=== PATIENT | male | born 1980 | race Hispanic/Latino ===

== ENCOUNTER 2019-05-22 17:32 | Inpatient (IN) ==
[2019-05-22] MEDS ORDERED: Sodium Chloride 0.9% 1,000 ML PRIMARY IV ONE ×2 (17:54)
[2019-05-22 17:59] LABS: BASOPHILS % (AUTO) 1.3 % (0-1); EOSINOPHILS # (AUTO) 0.02 10*3/UL; EOSINOPHILS % (AUTO) 0.3 % (0-8); Hematocrit [HCT] 46.5 % (42.0-52.0); Hemoglobin [HGB] 15.9 g/dL (14.0-18.0); LYMPHOCYTES # (AUTO) 1.72 10*3/uL; MEAN CORPUSCULAR HEMOGLOBIN 33.1 PG (27-31); MEAN CORPUSCULAR HGB CONC 34.2 g/dL (33-37); MEAN CORPUSCULAR VOLUME 96.9 FL (80-90); MEAN PLATELET VOLUME 10.1 FL (7.4-12.2); MONOCYTES # (AUTO) 0.93 10*3/UL (0.3-0.8); MONOCYTES % (AUTO) 12.5 % (5-15); NEUTROPHILS # (AUTO) 4.64 10*3/UL; NEUTROPHILS % (AUTO) 62.4 % (50-80)
[2019-05-22 18:07] LABS: PLATELET MORPHOLOGY COMMENT NORMAL MORPHOLOGY (NORM); RBC MORPHOLOGY COMMENT NORMAL MORPHOLOGY (NORM); WBC MORPHOLOGY COMMENT NORMAL MORPHOLOGY (NORM)
[2019-05-22 18:10] LABS: BLOOD UREA NITROGEN 5 mg/dL (7-22); BUN/CREATININE RATIO 6.25 (6-20); SERUM ALBUMIN 5.5 g/dL (3.5-4.8)
[2019-05-22] MEDS ORDERED: LORazepam 2 MG/1 ML VIAL IVP ONE (18:46)
--- NOTE | 2019-05-22 18:57 | PDOC ---
Altered Mental Status HPI - General Chief Complaint: Altered Mental Status Stated Complaint: SEIZURE Date Seen by Provider: 05/22/19 Time Seen by Provider: 18:20 - History of Present Illness Initial Comments: This is a very nice 38-year-old gentleman who moved here from [place] and is working on the [employer]. He states that he is a daily drinker and that he drank a little bit yesterday but has not drank anything today and has been working out in the hot sun. He ended up having a episode where he became altered mentally and had some shaking is unclear whether had seizure or not but he did not have loss of bowel or bladder continence. He is definitely tremulous and tachycardic here in the emergency department now. He denies fever or chills or abdominal pain or nausea or vomiting. Past Medical History - heen HEENT History: Denies History Cardiovascular History: Denies History Respiratory History: Denies History Gastrointestinal History: Denies History Genitourinary History: Denies History Endocrine History: Denies History Musculoskeletal History: Denies History Prosthesis or Implant: No Neurological History: Denies History Blood Disorders: Denies History Psychiatric History: Denies History Male Reproductive History: Denies History Cancer History: Denies History In Past Year Been Physically Harmed or Verbally Threatened: No History of MDRO: Unknown Tobacco Use: Never Smoker In the Past 12 Months, Have Used or Abuse Any Substance: None Previous Surgical History: No Family History of Malignant Hyperthermia: No Significant Family History: No pertinent family hx Past Medical History Reviewed: Reviewed - No Changes ROS - Limitations ROS Limitations: No Limitations Constitution: REPORTS: Denies Symptoms Cardiovascular: REPORTS: Denies Cardiac Symptoms Respiratory: REPORTS: Denies Resp Symptoms Gastrointestinal: REPORTS: Denies GI Symptoms Musculoskeletal: REPORTS: Denies MS Symptoms Altered Mental Physical Exam - General Appearance General Appearance: POSITIVE: Alert, Cooperative, No Acute Distress - HEENT HEENT: POSITIVE: Head Inspection Nml - Neuro/Psych Peripheral Exam: POSITIVE: Tremors - Neck Neck: POSITIVE: Supple, Non Tender - Respiratory Respiratory: POSITIVE: No Respiratory Distress, Breath Sounds Normal - Abdomen Abdomen: Soft: (All Quadrants), Normal Bowel Sounds: (All Quadrants), Denies Tenderness: (All Quadrants) - Skin Skin: POSITIVE: Normal for Race Altered Mental Status - Results Reviewed By Me Lab Results Reviewed by Me: Yes CBC and BMP: 05/22/19 17:50 05/22/19 17:50 Lab Results:: Laboratory Results 05/22/19 05/22/19 05/22/19 17:50 17:50 17:50 WBC 7.44 RBC 4.80 Hgb 15.9 Hct 46.5 MCV 96.9 H MCH 33.1 H MCHC 34.2 RDW Std Deviation 49.0 RDW Coeff of Braeden 14.0 Plt Count 119 L MPV 10.1 Immature Gran % (Auto) 0.4 Neut % (Auto) 62.4 Lymph % (Auto) 23.1 Wilson % (Auto) 12.5 Eos % (Auto) 0.3 Baso % (Auto) 1.3 H Immature Gran # (Auto) 0.03 Neut # (Auto) 4.64 Lymph # (Auto) 1.72 Wilson # (Auto) 0.93 H Eos # (Auto) 0.02 Baso # (Auto) 0.10 WBC Morphology Comment Normal morphology Plt Morphology Comment Normal morphology RBC Morph Comment Normal morphology Sodium 141 Potassium 3.7 L Chloride 102 Carbon Dioxide 13 L Anion Gap 26 H BUN 5 L Creatinine 0.8 Estimated GFR > 60 BUN/Creatinine Ratio 6.25 Glucose 166 H Calculated Osmolality 292.0 Calcium 10.1 Magnesium 1.6 Total Bilirubin 1.0 AST 221 H ALT 219 H Alkaline Phosphatase 105 Total Creatine Kinase 320 H Total Protein 9.4 H Albumin 5.5 H Globulin 3.9 Albumin/Globulin Ratio 1.40 Serum Alcohol < 10 - Patient's Progress MDM / ED Course: There is a significant language barrier but I think we have been able to bridge that with the help of gout will translate and one of our paramedics. Ultimately we have been able to figure out that this gentleman is a chronic daily drinker and hasn't drank very much the last 2 days and has been working hard in the sun and is having some alcohol withdrawal symptoms. He's healthy otherwise and does desire to stop drinking and would like to complete alcohol withdrawal. The case is been discussed with the hospitalist who is agreed to accept the patient into the hospital. He's been given a 2 mg dose of Ativan and no further thiamine or other vitamins or treatment have been given in the ER at this time. Patient Care Time - Estimated PCT Patient Care Time (In Minutes): 40 Vital Signs - Recent Vital Signs Vital Signs: Vital Signs (Last 8 hours) Temp Pulse Resp BP Pulse Ox 05/22/19 18:10 97.1 F 124 H 16 160/96 93 Discharge Clinical Impression: Alcohol withdrawal Qualifiers: Complication of substance-induced condition: uncomplicated Qualified Code(s): F10.230 - Alcohol dependence with withdrawal, uncomplicated Discharge Disposition: Admit to Inpatient Condition: Fair Patient Problem(s) Reviewed: Yes Follow Up With: NONE,NONE [Primary Care Provider] - Date Decision to Admit to Inpatient: 05/22/19 Time Decision to Admit to Inpatient: 19:27
[2019-05-22] MEDS ORDERED: Diazepam Inj (ETOH withdrawal)10 MG/2 ML CARPUJECT IVP PRN (20:00)
[2019-05-22] MEDS ORDERED: Dexmedetomidine/NS 400 MCG/100 ML INFUS..BTL IV SCH (20:15)
[2019-05-22] MEDS ORDERED: Loperamide Tab 2 MG TABLET PO PRN (23:00)
[2019-05-22] MEDS ORDERED: Sodium Chloride 0.9% 1,000 ML, Magnesium Sulfate 2gm (Premix) 50 ML with Multivitamin I... IV SCH ×5 (23:00)
[2019-05-22] MEDS ORDERED: LIDOCAINE W/ SODIUM BICARB 0.5 ML SYR SUBD PRN (23:00)
[2019-05-22] MEDS ORDERED: Diazepam 10 mg Tab (ETOH withdrawal) PO PRN (23:00)
[2019-05-22] MEDS ORDERED: MAGNESIUM 400 MG/5 ML - 30 ML (MILK OF MAGNESIA) PO PRN (23:00)
[2019-05-22] MEDS ORDERED: MAG HYDROX/AL HYDROX/SIMETH 30 ML SUSP PO PRN (23:00)
[2019-05-22] MEDS ORDERED: ONDANSETRON 4 MG/2 ML VIAL IV PRN (23:00)
[2019-05-22] MEDS ORDERED: Magnesium Sulfate 2gm (Premix) 2 GM/50 ML BAG IV ONE (23:10)
--- NOTE | 2019-05-22 23:10 | PDOC ---
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 He comes in stating that he was "feeling sick". He does not have any recall of the events surrounding today's episode when he felt sick. In the emergency room he was found to have tremors, and was mildly agitated. He admitted to drinking 6 beers to the emergency room physician. But he admitted to me that he drank about a case of beer per day. He stopped drinking alcohol 3 days ago. He denied any abdominal pain or headache but states that normally when he gets sick he has headaches. He does not recall any seizure activity. He did not bite his tongue. He did lose his bowel or bladder function. He has no specific complaints today and I did a thorough review of history with [place] and he stated that he understood the questions very well. He responded very well to Ativan, and is feeling much better. It is not known if he had any prior problems with alcohol. When I asked him why he decided to stop alcohol, he states that he just felt that it was time to stop. Past Medical History Medical History: No prior medical problems. Surgical History: The patient denied any prior history of surgeries. Pertinent Family History: He denies any family history of medical issues such as diabetes or coronary artery disease. Past Social History: Illegal from [place]. He does not smoke cigarettes. He drinks about 12 beers per day. Not . States he has children. Tobacco Use: Never Smoker In the Past 12 Months, Have Used or Abuse Any of the Following Substance: None (The patient denied any drug use) Alcohol Use: Heavy Medication / Allergies Home Medications: Home Medications Medication Instructions Recorded Confirmed NK 05/22/19 05/22/19 Allergies/Adverse Reactions: Allergies Allergy/AdvReac Type Severity Reaction Status Date / Time No Known Allergies Allergy Verified 05/22/19 20:17 Review of Systems - Review of Systems All Systems: Reviewed & No Additional Complaints Except as Stated (I did a 12 point review systems and it was negative other than that discussed below and in the history of present illness. Specifically I used the Google translate at and the patient understood well.) Exam - Vitals Vital Signs: Vital Signs Temperature 97 F Temperature Source Temporal Artery Scan Pulse Rate [Pulse Oximeter 93 Bilateral] Pulse Rate 80 Respiratory Rate 19 Blood Pressure [Left Arm] 160/96 Blood Pressure 118/81 Pulse Ox 95 Oxygen Flow Rate room air Oxygen Delivery Method Room Air Height 5 ft 5 in Weight 140 lb - General General Appearance: No Acute Distress, Cooperative, Average Body Hiatus - Head Head Exam: Normal Inspection, Normocephalic, Atraumatic - Eye Eye Exam: POSITIVE: No Scleral Icterus - ENT ENT Exam: POSITIVE: Mucous Membranes Moist Additonal ENT Exam Details: No evidence of tongue lacerations on my exam. - Neck Neck Exam: Normal Inspection, No Lymphadenopathy, No Thyromegaly, JVP is not Raised - Respiratory Respiratory Exam: POSITIVE: Clear to Auscultation - Bilaterally, Breathing Non Labored, Normal to Percussion and Palpation - Cardiovascular Cardiovascular Exam: POSITIVE: No Murmur, No Clicks, No Gallops, No Rubs, Tachycardia, No JVD - GI/Abdominal GI/Abdominal Exam: POSITIVE: Normal Bowel Sounds, Non Tender, Non Distended, Soft - Rectal Rectal Exam: POSITIVE: Deferred - External Exam: POSITIVE: Deferred Exam: POSITIVE: Deferred - Extremities Extremities Exam: POSITIVE: No Clubbing Present, No Edema Present, No Cyanosis Present - Back Back Exam: POSITIVE: No CVA Tenderness - Neurological Neurological Exam: POSITIVE: Alert, Oriented x 3, No Facial Droop, Speech Intact / Clear, Moves All Extremities Equally - Integumentary Integumentary Exam: POSITIVE: Normal Color, Warm, Dry, Intact Results - Labs CBC and BMP: 05/22/19 17:50 05/22/19 17:50 Additional Lab Results: Laboratory Results 05/22/19 05/22/19 05/22/19 17:50 17:50 17:50 WBC 7.44 RBC 4.80 Hgb 15.9 Hct 46.5 MCV 96.9 H MCH 33.1 H MCHC 34.2 RDW Std Deviation 49.0 RDW Coeff of Braeden 14.0 Plt Count 119 L MPV 10.1 Immature Gran % (Auto) 0.4 Neut % (Auto) 62.4 Lymph % (Auto) 23.1 Ransom % (Auto) 12.5 Eos % (Auto) 0.3 Baso % (Auto) 1.3 H Immature Gran # (Auto) 0.03 Neut # (Auto) 4.64 Lymph # (Auto) 1.72 Ransom # (Auto) 0.93 H Eos # (Auto) 0.02 Baso # (Auto) 0.10 WBC Morphology Comment Normal morphology Plt Morphology Comment Normal morphology RBC Morph Comment Normal morphology Sodium 141 Potassium 3.7 L Chloride 102 Carbon Dioxide 13 L Anion Gap 26 H BUN 5 L Creatinine 0.8 Estimated GFR > 60 BUN/Creatinine Ratio 6.25 Glucose 166 H Calculated Osmolality 292.0 Calcium 10.1 Magnesium 1.6 Total Bilirubin 1.0 AST 221 H ALT 219 H Alkaline Phosphatase 105 Total Creatine Kinase 320 H Total Protein 9.4 H Albumin 5.5 H Globulin 3.9 Albumin/Globulin Ratio 1.40 Serum Alcohol < 10 Assessment and Plan - Patient Problems (1) Chronic alcoholism Current Visit: Yes Status: Acute Code(s): F10.20 - Alcohol dependence, uncomplicated (2) Alcohol withdrawal Current Visit: Yes Status: Acute Code(s): F10.239 - Alcohol dependence with withdrawal, unspecified Qualifiers: Complication of substance-induced condition: uncomplicated Qualified Code(s): F10.230 - Alcohol dependence with withdrawal, uncomplicated - Assessment / Plan Additional Assessment/Plan Details: Admit the patient. We'll start Precedex drip immediately. This is a young man who is drinking much more heavily than what he admits. In addition we will start the CIWA protocol. I will scheduled Librium for now. Seizure precautions. Monitor in the ICU. Electrolyte replacement with magnesium and potassium, banana bags for electrolyte and vitamin replacement, including thiamine, and normal saline with potassium in between banana bags. Check labs in a.m. Hopefully, the patient will remain off of alcohol after he recovers from his alcohol detox. Given his legal status in the [place] to be very difficult to place him in services for alcohol cessation post hospital stay. Urine drug screen
[2019-05-22] MEDS: ChlordiazePOXIDE Cap 25 MG CAPSULE PO SCH (23:49)
--- NOTE | 2019-05-23 00:37 | EKG ---
[address] [address] Measurements Intervals [place] Rate: 86 P: 61 SD: 137 QRS: 51 QRSD: 90 T: 61 QT: 391 QTc: 435 Interpretive Statements SINUS RHYTHM No previous ECG available for comparison Electronically Signed On 05-23-19 08:13:28 MDT by Tanner Joseph [email or web address]
--- NOTE | 2019-05-23 00:57 | EKG ---
[address] [address] Measurements Intervals [place] Rate: 124 P: 70 WA: 159 QRS: 46 QRSD: 97 T: 49 QT: 312 QTc: 385 Interpretive Statements SINUS TACHYCARDIA NONSPECIFIC ST CHANGES No previous ECG available for comparison Electronically Signed On 05-23-19 08:12:43 MDT by Tanner Joseph [email or web address]
[2019-05-23 01:52] LABS: AMPHETAMINE SCREEN NEGATIVE (NEG); CANNABINOID SCREEN,URINE NEGATIVE (NEG); COCAINE SCREEN NEGATIVE (NEG); METHADONE URINE SCREEN NEGATIVE (NEG); METHAMPHETAMINES SCREEN,URINE NEGATIVE (NEG); OPIATE SCREEN,URINE NEGATIVE (NEG); URINE SAMPLE TYPE CLEAN CATCH URINE
[2019-05-23 04:53] LABS: BASOPHILS # (AUTO) 0.04 10*3/UL; BASOPHILS % (AUTO) 0.6 % (0-1); EOSINOPHILS # (AUTO) 0.03 10*3/UL; EOSINOPHILS % (AUTO) 0.5 % (0-8); Hematocrit [HCT] 44.2 % (42.0-52.0); Hemoglobin [HGB] 15.2 g/dL (14.0-18.0); LYMPHOCYTES # (AUTO) 0.82 10*3/uL; MEAN CORPUSCULAR HGB CONC 34.4 g/dL (33-37); MEAN CORPUSCULAR VOLUME 96.1 FL (80-90); MEAN PLATELET VOLUME 11.1 FL (7.4-12.2); MONOCYTES # (AUTO) 0.85 10*3/UL (0.3-0.8); MONOCYTES % (AUTO) 13.3 % (5-15); NEUTROPHILS # (AUTO) 4.65 10*3/UL; NEUTROPHILS % (AUTO) 72.6 % (50-80)
[2019-05-23 04:57] LABS: BLOOD UREA NITROGEN 5 mg/dL (7-22); BUN/CREATININE RATIO 8.33 (6-20); SERUM ALBUMIN 4.5 g/dL (3.5-4.8)
[2019-05-23 05:13] LABS: PLATELET MORPHOLOGY COMMENT NORMAL MORPHOLOGY (NORM); RBC MORPHOLOGY COMMENT NORMAL MORPHOLOGY (NORM); WBC MORPHOLOGY COMMENT NORMAL MORPHOLOGY (NORM)
[2019-05-23] MEDS: ChlordiazePOXIDE Cap 25 MG CAPSULE PO SCH ×3 (08:02→20:18)
[2019-05-23] MEDS ORDERED: PANTOPRAZOLE IV 40 MG VIAL IVP SCH (09:00)
--- NOTE | 2019-05-23 09:48 | PDOC(PROG) ---
Interval History: Patient has no complaints this morning. He has no tremors his Precedex drip is almost off. Does not seem agitated. Objective : Data - Labs CBC and BMP: 05/23/19 03:47 05/23/19 03:47 Objective : Exam - General General Appearance: No Acute Distress, Cooperative - Respiratory Respiratory Exam: Clear to Auscultation - Bilaterally, Breathing Non Labored, Normal To Percussion, Normal to Percussion and Palpation - Cardiovascular Cardiovascular Exam: RRR, No Murmur, No Clicks, No Gallops, No Rubs, PMI Non- Displaced - GI/Abdominal GI/Abdominal Exam: Normal Bowel Sounds, Non Tender, Non Distended, Soft, No Masses, No Hepatomegaly, No Splenomegaly, No Organomegaly - Extremities Extremities Exam: No Clubbing Present, No Edema Present, No Cyanosis Present Assessment and Plan - Patient Problems (1) Alcohol withdrawal Current Visit: Yes Status: Acute Comment: We will stop the Precedex drip observed patient if he scores only see well his vitamins and electrolytes were replaced he is well rehydrated. Discussed with nursing Code(s): F10.239 - Alcohol dependence with withdrawal, unspecified Qualifiers: Complication of substance-induced condition: uncomplicated Qualified Code(s): F10.230 - Alcohol dependence with withdrawal, uncomplicated (2) Chronic alcoholism Current Visit: Yes Status: Acute Code(s): F10.20 - Alcohol dependence, uncomplicated
[2019-05-23] MEDS ORDERED: LORazepam Inj(ETOH withdrawal) 2 MG/ML VIAL IVP PRN (14:58)
[2019-05-23] MEDS ORDERED: LORazepam 1 mg tab (ETOH withdrawal) PO PRN (14:58)
[2019-05-24 07:35] VITALS: BP 115/88
[2019-05-24] MEDS ORDERED: Multivitamin Tab 1 TAB PO SCH (09:00)
[2019-05-24] MEDS ORDERED: FOLIC ACID 1 MG TABLET PO SCH (09:00)
[2019-05-24] MEDS ORDERED: Thiamine Tab 100 MG TAB PO SCH (09:00)
[2019-05-24 09:12] VITALS: RESP 18; O2SAT 95
[2019-05-24] MEDS: ChlordiazePOXIDE Cap 25 MG CAPSULE PO SCH (09:36)
[2019-05-24 09:59] VITALS: TEMP 98.4
--- NOTE | 2019-05-24 10:14 | DCSUMMARY ---
Hospitalization Summary Hospital Course: Final Discharge Diagnosis: Current Visit Problems Problem Status Onset Code Alcohol withdrawal Acute F10.239 Chronic alcoholism Acute F10.20 Dehydration Diagnostic Data, Laboratory Data, and Procedures of Signifigance: Current Visit Problems Problem Status Onset Code Alcohol withdrawal Acute F10.239 Chronic alcoholism Acute F10.20 Laboratory Results 05/23/19 03:47 Vitamin B12 789 Serum Folate > 20.0 H CBC and BMP 05/23/19 03:47 05/23/19 03:47 History and Physical pertinent to Admission: Course of Hospitalization: Is a very nice 38-year-old the gentleman from [place] he was doing some work here was seen in the ER met the criteria for alcohol withdrawal was admitted. Initially he was put on Precedex drip this was stopped to the patient was eating food doing well yesterday morning he had some mild tremors and tachycardia and was given Ativan throughout the rest of the day and during the night patient did not score to receive any more medication this morning he is doing great he is out of bed he pulled his on IV and 3 of his friends are here and the they are leaving the hospital to go home he will be walking out no matter what I recommend. I recommended he stay at least for lunch and see how he would feel but he said he was leaving at this point and was not stay for lunch. 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 He understands he was appreciative of the help he received here. He is on no medication he said he will not be drinking anymore. On the date of discharge, the patient was examined: Gen.: [No acute distress, alert, nontoxic] Heart: [Regular rate and rhythm, no murmurs, clicks, gallops, or rubs] Lungs: [Clear to auscultation bilaterally, breathing is nonlabored] Abdomen/GI: [Normal tones on auscultation, soft, nontender, nondistended] Musculoskeletal/extremities: [No clubbing, cyanosis, or edema] Vitals reviewed and are listed below Vital Signs (24 hrs) 05/23/19 11:00 05/23/19 11:24 05/23/19 12:00 Temperature 98.6 F 96.9 F 98.2 F Pulse Rate 69 Pulse Rate [Pulse Oximeter Bilateral] 67 92 Pulse Rate [left finger] 74 Respiratory Rate 16 16 14 Blood Pressure 127/81 Blood Pressure [Left Arm] 127/81 140/86 Pulse Ox 97 96 Pulse Ox [left finger] 97 05/23/19 13:00 05/23/19 14:00 05/23/19 14:04 Temperature 98.2 F 98.2 F Pulse Rate 89 Pulse Rate [Pulse Oximeter Bilateral] 88 97 Pulse Rate [left finger] 95 Respiratory Rate 14 19 18 Blood Pressure 157/105 Blood Pressure [Left Arm] 141/88 157/103 Pulse Ox 95 94 Pulse Ox [left finger] 96 05/23/19 15:00 05/23/19 15:38 05/23/19 16:00 Temperature 98.2 F Pulse Rate 80 86 Pulse Rate [Pulse Oximeter Bilateral] 97 89 Pulse Rate [left finger] 95 Respiratory Rate 19 14 Blood Pressure 134/92 Blood Pressure [Left Arm] 141/111 134/92 Pulse Ox 92 95 Pulse Ox [left finger] 92 05/23/19 17:00 05/23/19 17:21 05/23/19 18:00 Temperature 97.7 F Pulse Rate Pulse Rate [Pulse Oximeter Bilateral] 90 90 95 Pulse Rate [left finger] 90 Respiratory Rate 16 16 15 Blood Pressure Blood Pressure [Left Arm] 131/90 158/92 Pulse Ox 97 91 Pulse Ox [left finger] 96 05/23/19 18:24 05/23/19 19:00 05/23/19 20:00 Temperature 98.3 F 98.1 F Pulse Rate 84 Pulse Rate [Pulse Oximeter Bilateral] 93 94 90 Pulse Rate [left finger] 93 Respiratory Rate 20 20 20 Blood Pressure Blood Pressure [Left Arm] 158/92 164/105 132/86 Pulse Ox 92 97 98 Pulse Ox [left finger] 92 05/23/19 20:14 05/23/19 21:00 05/23/19 22:00 Temperature 98.1 F 98.9 F Pulse Rate 80 Pulse Rate [Pulse Oximeter Bilateral] 81 71 Pulse Rate [left finger] 81 Respiratory Rate 20 18 18 Blood Pressure 132/86 Blood Pressure [Left Arm] 132/71 129/58 Pulse Ox 97 97 Pulse Ox [left finger] 97 05/23/19 23:00 05/24/19 00:00 05/24/19 01:00 Temperature 98.4 F Pulse Rate 72 Pulse Rate [Pulse Oximeter Bilateral] 70 70 72 Pulse Rate [left finger] 70 72 Respiratory Rate 20 18 18 Blood Pressure Blood Pressure [Left Arm] 118/98 137/89 130/92 Pulse Ox 95 94 97 Pulse Ox [left finger] 97 97 05/24/19 01:07 05/24/19 02:00 05/24/19 03:00 Temperature 98.2 F Pulse Rate 72 65 Pulse Rate [Pulse Oximeter Bilateral] 74 66 Pulse Rate [left finger] 67 Respiratory Rate 18 16 18 Blood Pressure 130/92 Blood Pressure [Left Arm] 109/74 127/83 Pulse Ox 97 97 Pulse Ox [left finger] 97 05/24/19 04:00 05/24/19 04:58 05/24/19 05:00 Temperature 97.7 F 97.7 F Pulse Rate 71 Pulse Rate [Pulse Oximeter Bilateral] 71 65 Pulse Rate [left finger] 65 Respiratory Rate 20 20 20 Blood Pressure 134/77 Blood Pressure [Left Arm] 134/77 129/89 Pulse Ox 97 99 Pulse Ox [left finger] 99 05/24/19 05:14 05/24/19 05:27 05/24/19 06:00 Temperature Pulse Rate Pulse Rate [Pulse Oximeter Bilateral] 65 81 Pulse Rate [left finger] Respiratory Rate 20 18 Blood Pressure Blood Pressure [Left Arm] 112/93 Pulse Ox 100 Pulse Ox [left finger] 05/24/19 07:00 05/24/19 09:00 Temperature 98.4 F Pulse Rate 78 Pulse Rate [Pulse Oximeter Bilateral] 78 96 Pulse Rate [left finger] 78 96 Respiratory Rate 16 18 Blood Pressure 115/88 Blood Pressure [Left Arm] 115/88 Pulse Ox 94 95 Pulse Ox [left finger] 94 96 Assessment and Plan: 1. As per discharge assessments above 2. Disposition: Home 3. Condition on discharge, stable and improved. 4. Diet: regular diet 5. Activities: resume normal activities 6. Follow-Up: 1. [PCP] 2. 7. Medications at the Time of Discharge: Home Medications Medication Instructions Recorded Confirmed NK 05/22/19 05/22/19 8. Time, care, counseling and coordination of care for this discharge is greater than 30 minutes. Exam - Vitals Vital Signs: Vital Signs Temperature 98.4 F Temperature Source Temporal Artery Scan Pulse Rate [Pulse Oximeter 96 Bilateral] Pulse Rate [left finger] 96 Pulse Rate 78 Respiratory Rate 18 Blood Pressure [Left Arm] 115/88 Blood Pressure 115/88 Pulse Ox [left finger] 96 Pulse Ox 95 Oxygen Flow Rate 2 Oxygen Delivery Method [left Room Air finger] Oxygen Delivery Method Room Air Height 5 ft 5 in Weight 140 lb Patient Problems - Patient Problem List (1) Alcohol withdrawal Current Visit: Yes Status: Acute Code(s): F10.239 - Alcohol dependence with withdrawal, unspecified Qualifiers: Complication of substance-induced condition: uncomplicated Qualified Code(s): F10.230 - Alcohol dependence with withdrawal, uncomplicated Category: Medical (2) Chronic alcoholism Current Visit: Yes Status: Acute Code(s): F10.20 - Alcohol dependence, uncomplicated Category: Medical
== END 2019-05-24 09:56 | disposition home or self-care (01) | DRG 897 ==
LOC: ER 17:32 → ICU 20:09 → MED/SURG 05-23 20:55 → ICU 05-23 20:57
PROVIDERS: ADMIT Family Medicine; ATTEND Family Medicine